=== PATIENT | male | born 1975 | race Two or more races ===

== ENCOUNTER 2016-08-09 09:01 | Emergency (ER) | payer SELFPAY ==
[2016-08-09 09:30] VITALS: TEMP 98; BMI 21.4
[2016-08-09 10:20] LABS: AUTOMATED EOSINOPHIL 5.8 % (0-5); AUTOMATED LYMPH 39.1 % (17-44); AUTOMATED MONOCYTE 7.7 % (3-10); AUTOMATED NEUTROPHIL 46.4 % (45-76); MPV 6.7 fL (7.4-10.4)
[2016-08-09 10:34] LABS: PARTIAL THROMB. TIME 27.2 SEC (22-35)
[2016-08-09 10:38] LABS: BLOOD UREA NITROGEN 12 MG/DL (9-20); CALCIUM 9.5 MG/DL (8.4-10.2); CALCULATED OSMOLALITY 269 MOs/Kg (270-290); CHLORIDE 102 mEq/L (98-107); GLUCOSE 93 mg/dL (70-99); SODIUM LEVEL 140 mEq/L (137-146); TOTAL PROTEIN 7.4 G/DL (6.3-8.2)
--- NOTE | 2016-08-09 10:45 | DIRPT ---
CLINICAL DATA: Cough. EXAM: CHEST 2 VIEW COMPARISON: 12/25/2011, 08/11/2008 FINDINGS: The heart size and mediastinal contours are within normal limits. Both lungs are clear. The visualized skeletal structures are unremarkable. Rounded density projecting over the RIGHT lower lobe similar to radiograph from 2009 favored to represent nipple shadow. IMPRESSION: No active cardiopulmonary disease. Probable nipple shadow in the RIGHT lower lobe. Electronically Signed By: Blaine Dumont M.D. On: 08/09/2016 10:42
[2016-08-09 10:51] LABS: FREE T3 4.51 pg/mL (2.77-5.27); FREE T4 1.24 ng/dL (0.78-2.19)
[2016-08-09 11:04] LABS: hTSH 0.64 uIU/mL (0.5-4.67)
--- NOTE | 2016-08-09 11:36 | EDPRACDOC ---
- General Information Chief Complaint: Upper Extremity Injury Stated Complaint: HAND/ FOOT PAIN Time Seen by Provider: 08/09/16 10:00 Information Source: Patient Home Medications: Home Medications Losartan Potassium [Cozaar] 50 mg PO BID 08/09/16 Allergies/Adverse Reactions: Allergies Allergy/AdvReac Type Severity Reaction Status Date / Time aspirin Allergy RASH Verified 08/09/16 09:30 Penicillins Allergy RASH Verified 08/09/16 09:30 Tricyclic Compounds Allergy RASH Verified 08/09/16 09:30 - History of Present Illness Onset: 4 months HPI: PT PRESENTS WITH SENSATION OF TIGHTNESS TO HANDS AND FEET ONGOING FOR SOME TIME. HE CAME TO ER TODAY BECAUSE OF 2 EPISODES OF URGENT BOWEL MOVEMENTS OVER THE LAST DAY WITH ASSOCIATED CHILLS. ED Past Medical History - History Reviewed Yes Nurses notes reviewed and agree except as marked - Patient Medical History Cardiac History: Reports: Hypertension Psychological History: Denies: Depression Surgical History: Reports: Appendectomy - Social Medical History Smoking Status: Former smoker Lives With: Family Lives In: Home EDM Review of Systems - Review of Systems ROS Negative Except as Marked: Yes All systems reviewed and were negative except as marked Constitutional: Chills, Fatigue. negative: Fever Respiratory: negative: Shortness of Breath Cardiovascular: Chest Pain (INTERMITTENT PRESSURE FOR SOME TIME.) Gastrointestinal: Pain, Other (URGENT STOOLING THE LAST DAY.). negative: Vomiting - Physical Exam Constitutional: Alert Oriented to: Time, Person, Place Last recorded Vital Signs: Last Vital Signs Temp 98.0 F 08/09/16 09:21 Pulse 65 08/09/16 10:33 Resp 18 08/09/16 09:21 BP 118/71 08/09/16 10:33 Pulse Ox 99 08/09/16 10:33 Oxygen Pulse Oxygen Saturation 99 O2 Device Oxygen Flow Rate Fraction of Inspired Oxygen ( FIO2) - HEENT Head: negative: Deformity, Laceration Eye Exam: negative: Conjunctival Injection, Pale Conjunctiva Oropharynx: negative: Membranes Dry Nose: negative: Congestion, Discharge Neck: negative: Limited ROM - Respiratory/Cardiovascular Respiratory: Normal - CTA. negative: Accessory Muscle Use, Diminished, Tachypnea Cardiovascular: negative: Bradycardia, Tachycardia, Irregular - GI Auscultation: Normal Palpation: Normal Tenderness: Mild, Epigastric. negative: Guarding, Rebound, Rigidity - Integumentary Skin: Warm, Dry. negative: Rash - Neurologic Memory Impaired: Normal Motor Function: Normal Mood Description: Anxious Thought: Coherent Perception: Normal - Results 08/09/16 09:49 08/09/16 09:49 WBC 5.9 xk/uL (3.8-10.8) 08/09/16 09:49 RBC 5.60 xM/uL (4.70-6.10) 08/09/16 09:49 Hgb 16.0 g/dL (14.0-18.0) 08/09/16 09:49 Hct 47.4 % (42-52) 08/09/16 09:49 MCV 85 fL (80-94) 08/09/16 09:49 MCH 28.6 pg (27-32) 08/09/16 09:49 MCHC 33.8 g/dl (33-36) 08/09/16 09:49 RDW 12.2 % (11.5-14.5) 08/09/16 09:49 Plt Count 261 xk/uL (130-400) 08/09/16 09:49 MPV 6.7 fL (7.4-10.4) L 08/09/16 09:49 Neut % (Auto) 46.4 % (45-76) 08/09/16 09:49 Lymph % (Auto) 39.1 % (17-44) 08/09/16 09:49 Pender % (Auto) 7.7 % (3-10) 08/09/16 09:49 Eos % (Auto) 5.8 % (0-5) H 08/09/16 09:49 Baso % (Auto) 1.0 % (0-2) 08/09/16 09:49 Absolute Neuts (auto) 2.71 xk/uL (1.7-8.2) 08/09/16 09:49 Absolute Lymphs (auto) 2.30 xk/uL (0.65-4.75) 08/09/16 09:49 PT 10.5 SEC (9.2-11.2) 08/09/16 09:49 INR 1.0 08/09/16 09:49 APTT 27.2 SEC (22-35) 08/09/16 09:49 Sodium 140 mEq/L (137-146) 08/09/16 09:49 Potassium 4.0 mEq/L (3.5-5.1) 08/09/16 09:49 Chloride 102 mEq/L (98-107) 08/09/16 09:49 Carbon Dioxide 28 mMOL/L (22-33) 08/09/16 09:49 Anion Gap 14 mEq/L (8-16) 08/09/16 09:49 BUN 12 MG/DL (9-20) 08/09/16 09:49 Creatinine 0.80 MG/DL (0.66-1.25) 08/09/16 09:49 Estimated GFR (MDRD) > 60 mL/min (>=60) 08/09/16 09:49 Glucose 93 mg/dL (70-99) 08/09/16 09:49 Calculated Osmolality 269 MOs/Kg (270-290) L 08/09/16 09:49 Calcium 9.5 MG/DL (8.4-10.2) 08/09/16 09:49 Total Bilirubin 1.0 MG/DL (0.2-1.3) 08/09/16 09:49 AST 35 IU/L (17-59) 08/09/16 09:49 ALT 62 IU/L (21-72) 08/09/16 09:49 Alkaline Phosphatase 69 IU/L (38-126) 08/09/16 09:49 Troponin I < 0.01 ng/mL (<.04) 08/09/16 09:49 Total Protein 7.4 G/DL (6.3-8.2) 08/09/16 09:49 Albumin 4.7 G/DL (3.5-5.0) 08/09/16 09:49 Lipase 195 U/L (23-300) 08/09/16 09:49 TSH 0.64 uIU/mL (0.5-4.67) 08/09/16 09:49 Free T4 1.24 ng/dL (0.78-2.19) 08/09/16 09:49 Free T3 4.51 pg/mL (2.77-5.27) 08/09/16 09:49 Lab Results 08/09/16 08/09/16 02 09:49 09:49 09:49 WBC 5.9 RBC 5.60 Hgb 16.0 Hct 47.4 MCV 85 MCH 28.6 MCHC 33.8 RDW 12.2 Plt Count 261 MPV 6.7 L Neut % (Auto) 46.4 Lymph % (Auto) 39.1 Pender % (Auto) 7.7 Eos % (Auto) 5.8 H Baso % (Auto) 1.0 Absolute Neuts (auto) 2.71 Absolute Lymphs (auto) 2.30 PT 10.5 INR 1.0 APTT 27.2 Sodium 140 Potassium 4.0 Chloride 102 Carbon Dioxide 28 Anion Gap 14 BUN 12 Creatinine 0.80 Estimated GFR (MDRD) > 60 Glucose 93 Calculated Osmolality 269 L Calcium 9.5 Total Bilirubin 1.0 AST 35 ALT 62 Alkaline Phosphatase 69 Troponin I < 0.01 Total Protein 7.4 Albumin 4.7 Lipase 195 TSH 0.64 Free T4 1.24 Free T3 4.51 - EKG EKG #1 EKG Time: 10:31 -: Yes EKG interpreted by me Rate: bpm: 59 Rhythm: NSR Comments: EARLY REPOLARIZATION Decision Time to Discharge: 13:55 - Departure Yes I personally saw and evaluated the patient. Disposition: Home Condition: Stable Final Diagnosis: Paresthesia Instructions: Paresthesia (ED) Education/Counseling Given To: Patient, Family Member Education/Counseling Given Regarding: Diagnosis, Treatment, Prognosis, Follow Up Referrals: Darrick Mckeon MD [Primary Care Provider] - Call for Appointment Prescriptions: No Action Losartan Potassium [Cozaar] 50 mg PO BID
[2016-08-09] MEDS ORDERED: Pharmacy Review for Metformin - IV Contrast Given SCH (12:00)
--- NOTE | 2016-08-09 13:18 | DIRPT ---
CLINICAL DATA: Abdominal pain for 4 months. Unintentional weight loss. Initial encounter. EXAM: CT ABDOMEN AND PELVIS WITH CONTRAST TECHNIQUE: Multidetector CT imaging of the abdomen and pelvis was performed using the standard protocol following bolus administration of intravenous contrast. CONTRAST: 80 cc Isovue 370. COMPARISON: None. FINDINGS: The lung bases are clear. No pleural or pericardial effusion. The liver is low attenuating compatible with fatty infiltration. No focal liver lesion. The gallbladder, adrenal glands, spleen, biliary tree, pancreas and kidneys appear normal. The stomach and small large bowel are normal in appearance. The appendix is not visualized. No evidence of inflammatory process is seen. There is no lymphadenopathy or fluid. No bony abnormality is identified. IMPRESSION: No acute abnormality or finding to explain the patient's symptoms. Fatty infiltration of the liver. Electronically Signed By: Jt Cisneros M.D. On: 08/09/2016 13:16
[2016-08-09 14:14] VITALS: BP 117/70; PULSE 67
== END 2016-08-09 14:13 | disposition home or self-care (01) ==
LOC: ED 09:01
DX: R20.9 Unspecified disturbances of skin sensation (principal); R10.9 Unspecified abdominal pain
CPT/HCPCS: 36415; 71020; 74177; 80053; 83690; 84439; 84443; 84481; 84484; 85025; 85610; 85730; 93005; 99283; A9698